=== PATIENT | male | born 1985 | race African-American/Black ===

== ENCOUNTER 2016-07-31 19:28 | Emergency (ER) | payer SELFPAY | END 2016-07-31 20:50 | disposition left against medical advice (07) | LOC: ER 19:28 | DX: Z53.21 Procedure and treatment not carried out due to patient leaving prior to being seen by health care provider (principal) ==

== ENCOUNTER 2017-06-07 08:37 | Emergency (ER) | payer SELFPAY ==
[2017-06-07 09:40] LABS: ABSOLUTE EOSINOPHILS # (AUTO) 0.3 10^3/uL (0.0-0.6); ABSOLUTE LYMPHOCYTES (AUTO) 1.3 10^3/uL (0.5-4.7); ABSOLUTE MONOCYTES (AUTO) 0.3 10^3/uL (0.1-1.4); ABSOLUTE NEUT (AUTO) 2.1 10^3/uL (1.7-8.2); BASOPHILS % (AUTO) 0.9 % (0-2); EOSINOPHILS % (AUTO) 6.8 % (0-6); HEMATOCRIT 40.3 % (37.9-51.0); HEMOGLOBIN 13.3 g/dL (13.5-17.0); LYMPHOCYTES % (AUTO) 31.7 % (13-45); MEAN CORPUSCULAR HGB CONC 33.1 g/dL (32.0-36.0); MEAN CORPUSCULAR VOLUME 91 fl (80-97); MONOCYTES % (AUTO) 8.7 % (3-13); PLATELET COUNT 214 10^3/uL (150-450); RED BLOOD COUNT 4.44 10^6/uL (4.35-5.55); RED CELL DISTRIBUTION WIDTH 14.8 % (11.5-14.0); SEGMENTED NEUTROPHILS % (AUTO) 51.9 % (42-78); TOTAL CELLS COUNTED % (AUTO) 100 %
[2017-06-07 09:58] LABS: ALANINE AMINOTRANSFERASE 47 U/L (21-72); ALBUMIN 4.5 g/dL (3.5-5.0); ALKALINE PHOSPHATASE 41 U/L (38-126); ANION GAP 7 (5-19); ASPARTATE AMINO TRANSFERASE 23 U/L (17-59); BILIRUBIN,DIRECT 0.1 mg/dL (0.0-0.4); BILIRUBIN,TOTAL 1.2 mg/dL (0.2-1.3); BLOOD UREA NITROGEN 13 mg/dL (7-20); CARBON DIOXIDE 32 mmol/L (22-30); CHLORIDE 104 mmol/L (98-107); GLUCOSE 88 mg/dL (75-110); POTASSIUM 4.1 mmol/L (3.6-5.0); SODIUM 143.4 mmol/L (137-145)
[2017-06-07 10:01] LABS: ACETAMINOPHEN < 10 ug/mL (10-30); ALCOHOL < 10 mg/dL (NONE DETECTED); SALICYLATE < 1.0 mg/dL (2.0-20.0)
[2017-06-07 10:18] LABS: APPEARANCE,URINE SLIGHTLY-CLOUDY; BILIRUBIN,URINE NEGATIVE (NEGATIVE); COLOR,URINE YELLOW; GLUCOSE, URINE NEGATIVE (NEGATIVE); KETONES,URINE NEGATIVE (NEGATIVE); LEUKOCYTE ESTERASE,URINE SMALL (NEGATIVE); NITRITE,URINE NEGATIVE (NEGATIVE); PROTEIN,URINE 30 mg/dL (NEGATIVE); URINE SPECIFIC GRAVITY 1.033
[2017-06-07] MEDS ORDERED: BENZTROPINE MESYLATE INJ 2 MG/2 ML AMPULE IM ONE (10:27)
[2017-06-07] MEDS ORDERED: OLANZAPINE INJ/PF 10 MG SDV IM ONE (10:27)
[2017-06-07] MEDS ORDERED: HYDROXYZINE PAMOATE 50 MG CAPSULE PO PRN (10:31)
[2017-06-07 10:34] LABS: URINE AMPHETAMINES SCREEN NEGATIVE; URINE BARBITURATES SCREEN NEGATIVE; URINE BENZODIAZEPINES SCREEN NEGATIVE; URINE COCAINE SCREEN NEGATIVE; URINE MARIJUANA (THC) SCREEN UNCONFIRMED POSITIVE; URINE METHADONE SCREEN NEGATIVE; URINE PHENCYCLIDINE SCREEN NEGATIVE
--- NOTE | 2017-06-07 10:36 | ER Document Report ---
Addendum entered and electronically signed by NICO SANCHEZ LCSWA 06/08/17 10:48 : Discharge - Discharge Clinical Impression: Problems related to other legal circumstances Condition: Stable Disposition: HOME, SELF-CARE Additional Instructions: Counseling Services It has been recommended that you seek professional counseling to assist you with the stresses that you are experiencing. Most people at some time in their lives experience personal problems with which they need help. Pride and feeling that one can't be helped keep a lot of people from the benefits of counseling. Follow up care: Recommendation for patient to follow-up with medication provider and outpatient therapist at [facility]. Resources provided to patient and patient's family. Patient's fianc is present and has agreed to discharge plan to include assisting patient in obtaining an appointment with provider. Clinician contacted [facility] mobile crisis to arrange a time for an assessment at patient's home today 2017. Referrals: [facility] [Outside] - 06/08/17 Original Note: ED General - General TRAVEL OUTSIDE OF THE [place] IN LAST 30 DAYS: No - HPI Patient complains to provider of: Psychiatric evaluation <WILLIAN ORY - Last Filed: 06/07/17 10:36> <NICO SANCHEZ - Last Filed: 06/08/17 10:48> <IFEANYI SMART - Last Filed: 06/08/17 11:57> - General Chief Complaint: Depression Stated Complaint: PSYCH EVAL Time Seen by Provider: 06/07/17 08:51 - HPI Notes: Patient coming in for a psychiatric evaluation. Patient states depressed. Upon my evaluation patient is on his cell phone with any signs of any distress. When asked why the patient came here today patient states he cannot see his kids states that he has a do not see order from the mother's of his children and cannot see his kids therefore it is not a good place. Patient states he does not eat or drink anything the last 3 days. Patient denies homicidal suicidal ideation at this time. Patient states is not a good place I do not know what I will do. Patient does seem to be very hyperverbal at the time. Patient states he does have a history of PTSD. Patient states that he was on medication before however they were helping. Patient states he does not want take any medications for his issues at this time. Patient states he would just like to seek help. (WILLIAN ROY) - Related Data Allergies/Adverse Reactions: No Known Allergies Allergy (Unverified 10/09/11 00:17) Past Medical History - Social History Smoking Status: Current Every Day Smoker Chew tobacco use (# tins/day): No Frequency of alcohol use: Rare Drug Abuse: None Family History: Reviewed & Not Pertinent Patient has suicidal ideation: No Patient has homicidal ideation: No - Past Medical History Cardiac Medical History: Denies: Hx Coronary Artery Disease, Hx Heart Attack, Hx Hypertension Pulmonary Medical History: Denies: Hx Asthma, Hx Bronchitis, Hx COPD, Hx Pneumonia Neurological Medical History: Denies: Hx Cerebrovascular Accident, Hx Seizures Renal/ Medical History: Denies: Hx Peritoneal Dialysis Musculoskeltal Medical History: Denies Hx Arthritis Psychiatric Medical History: Reports: Hx Depression - Immunizations Hx Diphtheria, Pertussis, Tetanus Vaccination: Yes <WILLIAN ROY - Last Filed: 06/07/17 10:36> Review of Systems - Review of Systems Constitutional: No symptoms reported EENT: No symptoms reported Cardiovascular: No symptoms reported Respiratory: No symptoms reported Gastrointestinal: No symptoms reported Genitourinary: No symptoms reported Male Genitourinary: No symptoms reported Musculoskeletal: No symptoms reported Skin: No symptoms reported Hematologic/Lymphatic: No symptoms reported Neurological/Psychological: Depression -: Yes All other systems reviewed and negative <WILLIAN ROY - Last Filed: 06/07/17 10:36> Physical Exam - Vital signs Interpretation: Normal - General General appearance: Appears well, Alert - HEENT Head: Normocephalic, Atraumatic Eyes: Normal Pupils: PERRL - Respiratory Respiratory status: No respiratory distress Chest status: Nontender Breath sounds: Normal Chest palpation: Normal - Cardiovascular Rhythm: Regular Heart sounds: Normal auscultation Murmur: No - Abdominal Inspection: Normal Distension: No distension Bowel sounds: Normal Tenderness: Nontender Organomegaly: No organomegaly - Back Back: Normal, Nontender - Extremities General upper extremity: Normal inspection, Nontender, Normal color, Normal ROM , Normal temperature General lower extremity: Normal inspection, Nontender, Normal color, Normal ROM , Normal temperature, Normal weight bearing. No: Simone's sign - Neurological Neuro grossly intact: Yes Cognition: Normal Orientation: AAOx4 Renner Coma Scale Eye Opening: Spontaneous Renner Coma Scale Verbal: Oriented Renner Coma Scale Motor: Obeys Commands Otoniel Coma Scale Total: 15 Speech: Normal Motor strength normal: LUE, RUE, LLE, RLE Sensory: Normal - Psychological Associated symptoms: Depressed, Tearful - Skin Skin Temperature: Warm Skin Moisture: Dry Skin Color: Normal <WILLIAN ROY - Last Filed: 06/07/17 10:36> - Vital signs Vitals: Temp Pulse Resp BP Pulse Ox 97.8 F 78 14 92/51 L 97 06/07/17 21:18 06/07/17 21:18 06/07/17 21:18 06/07/17 21:18 06/07/17 21:18 Course - Laboratory Result Diagrams: 06/07/17 09:15 06/07/17 09:15 <WILLIAN ROY - Last Filed: 06/07/17 10:36> - Laboratory Result Diagrams: 06/07/17 09:15 06/07/17 09:15 <NICO SANCHEZ - Last Filed: 06/08/17 10:48> - Laboratory Result Diagrams: 06/07/17 09:15 06/07/17 09:15 <IFEANYI SMART - Last Filed: 06/08/17 11:57> - Re-evaluation Re-evalutation: 06/07/17 10:35 Laboratory studies not show any critical etiology at this time. Just been notified by the psychiatric team that they would like to IVC the patient and they have placed in medications for the patient. Upon finding out that the patient would stay for further evaluation patient became upset and aggressive requiring medication to help out his situation. (WILLIAN ROY) - Vital Signs Vital signs: Temp Pulse Resp BP Pulse Ox 98.9 F 60 14 106/48 L 98 06/08/17 09:43 06/08/17 09:43 06/08/17 09:43 06/08/17 09:43 06/08/17 09:43 - Laboratory Laboratory results interpreted by me: 06/07/17 06/07/17 06/07/17 09:15 09:15 09:15 Hgb 13.3 L RDW 14.8 H Eosinophils % 6.8 H Carbon Dioxide 32 H Urine Protein 30 H Urine Blood SMALL H Urine Urobilinogen 2.0 H Ur Leukocyte Esterase SMALL H Salicylates < 1.0 L Acetaminophen < 10 L Discharge <WILLIAN ROY - Last Filed: 06/07/17 10:36> <NICO SANCHEZ - Last Filed: 06/08/17 10:48> <IFEANYI SMART - Last Filed: 06/08/17 11:57> - Discharge Clinical Impression: Problems related to other legal circumstances Condition: Stable Disposition: HOME, SELF-CARE Additional Instructions: Counseling Services It has been recommended that you seek professional counseling to assist you with the stresses that you are experiencing. Most people at some time in their lives experience personal problems with which they need help. Pride and feeling that one can't be helped keep a lot of people from the benefits of counseling. Follow up care: Recommendation for patient to follow-up with medication provider and outpatient therapist at [facility]. Resources provided to patient and patient's family. Patient's fianc is present and has agreed to discharge plan to include assisting patient in obtaining an appointment with provider. Clinician contacted [facility] mobile crisis to arrange a time for an assessment at patient's home today 2017. Referrals: [facility] [Outside] - 06/08/17
--- NOTE | 2017-06-07 12:44 | PSYCHOLOGICAL NOTE ---
Psych Note - Psych Note Psych Note: Reason for Consult: depression pt to room 47 in ED for increase in depression. pt is not suicidal, pt states he just feels like he cant function and is scared of what he might do. pt took antidepressants in the past but is currently not on anything. Patient disclosed that he came to [facility] ED voluntarily because he did not want to "do something." Patient continues state "I am crazy about my kids... I already lost my mother... Now I'm losing my kids." Clinician was able to have the patient slow down to fully explain. He disclosed that he was in a previous relationship and has 2 boys ages 4 and 2 with her. He continued to state that while they are no longer together they still see each other frequently to raise the boys together. He reports a month ago when he told his ex-that he was engaged she confessed to him that she had cheated on him and the boys might not be his. He states that he has been trying to get a DNA test but she keeps coming up with excuses. He stopped communicating with her and started communicating with her father and attempt to get the DNA test; "I bought the kit... do you know how embarrassing that is standing in line buying a DNA kit? ... All she has to do is bring the boys over so I can swab their mouth ... It would take seconds." He disclosed that when he heard the doorbell he thought that his boys were there finally for the test however when he open the door it was a crime prevention police officer serving him with a no contact order. He continued disclosed that his ex-girlfriend knew boyfriend also put out a restraining order against him; "I do not even know what the shelly looks like... how can I stay away from him if I don't even know what he looks like?" He reports that his ex-" must have falsified" information to get the orders. Patient stated "they are not safe in my presence.. I cannot guarantee they are safe from me...this morning it turned to hate...I truly hate her" when speaking about his ex-girl friend and her boy friend. He continued to state "my mother 2 years ago... The only reason I did not kill myself was because of those boys... And now going to lose them... I have no one..." Patient is alert and orientated to person, place, time and circumstance. Mood is highly agitated and irritable with labile affect moving from angry to tearful. Patient makes passive homicidal and suicidal comments. Delusions are absent and behaviors congruent with intact reality based presentation i.e. organized and linear thought processes. Conversational speech is slightly pressured and loud. Eye contact was poor. Attention and concentration was poor. Insight, judgment, impulse control is good as evidenced by patient coming into [facility] for assistance. Medication recommendations per [facility]'s contracted psychiatrist, Dr. Cash MD are as follows: 1. Zyprexa 10mg Now 2. Cogentin 1mg Now 3. Effexor 37.5mg Twice Daily 4. Buspar 10mg Twice Daily Diagnosis 309.81 (F43.1) post traumatic stress disorder per history provided by patient Impression\\plan: Patient is recommended for IVC. Patient is currently in crisis with highly agitated and irritable mood with affect moving back and forth from angry to tearful quickly. Patient demonstrated good insight, judgment and impulse control coming into [facility] ED for assistance in stopping himself and acting out; however, patient attempted to elope moments after clinician spoke with patient demonstrating his deterioration in those areas of control. Patient made passive suicidal and homicidal comments. Medication recommendations have been provided. Patient will be reevaluated. Dr. Wayne was consulted and the care and management this patient; attending physician is in agreement with recommendations and disposition.
[2017-06-07] MEDS ORDERED: DIPHENHYDRAMINE HCL 50 MG/ML VIAL IM ONE (13:35)
[2017-06-07] MEDS ORDERED: LORAZEPAM INJ 2 MG/1 ML VIAL IM ONE (13:35)
--- NOTE | 2017-06-07 15:19 | EKG REPORT ---
SEVERITY:- NORMAL ECG - SINUS RHYTHM ST ELEV, PROBABLE NORMAL EARLY REPOL PATTERN : Confirmed by: Fatimah Davis 07-Jun-2017 15:19:18
[2017-06-07] MEDS ORDERED: VENLAFAXINE HCL 37.5 MG CAP.SR.24H PO ONE (19:54)
[2017-06-07] MEDS: BUSPIRONE HCL 10 MG TABLET PO SCH (21:19)
[2017-06-07] MEDS: OLANZAPINE 5 MG TABLET PO SCH (21:20)
[2017-06-07] MEDS: VENLAFAXINE HCL 37.5 MG CAP.SR.24H PO SCH (21:20)
--- NOTE | 2017-06-08 09:25 | ER Document Report ---
Doctor's Note Notes: Patient is alert and oriented 3 today without complaints. He has been seen by the psychology team. Vital signs have been stable. Labs have been stable. Awaiting disposition as per psychology. 06/08/17 09:23
[2017-06-08] MEDS: OLANZAPINE 5 MG TABLET PO SCH (09:37)
--- NOTE | 2017-06-08 09:37 | PSYCHOLOGICAL NOTE ---
Psych Note - Psych Note Psych Note: Reason for consult: Alleged passive suicidal ideation Eval: 0734 Final Disposition 0909 Contact Permissions: Bethany Stark [phone] Patient is a 31-year-old male. Patient reports that he had a good night of sleep and feels better. Patient reports that he has been thinking about what he is going to do next, and intends on hiring an compliance attorney to meet with this week. Patient reports that he wants 50/50 custody of his 2 children ages 4 and 2. Patient reports that he still intends on getting a DNA test but has mentally prepared himself for what he will do. Patient reports that he has a cousin who recently found out that his daughter (21 years old) was not biologically his, and has not been dealing well with it. Patient reports that he is afraid he will end up that way. Patient reports worst case scenario he would distance himself from the 2 children if they are not biologically his to cope with the news. Patient reports that he hopes the children are biologically his because he wants 50/50 custody and has been involved in their life since they were born. Patient reports that his fiance has been supportive throughout the discord between him and his children's mother. Patient reports that he is not suicidal/homicidal, And has a lot to live for including looking forward to marrying his fianc. Patient reports that he has been with her since 2014 and knows that he can continue to work towards getting his children back. Patient reports that he has had his children every other weekend since 2014. Patient reports that he has a court date on June 16 to discuss the protection order (restraining order). Patient reports that last night he was told his baby's mother tried to contact him through a third-democrat to state that their 2 children were happy and safe. Patient reports that he does not want to violate that order and will not be contacting her back. Patient reports that there is also a protective order against patient's boyfriend whom he has never met and does not intend to contact either. Patient reports that he hopes things work out for him in court, as he has experience with being involved in the "system". Patient reports that he lives in a good neighborhood and has always treated his children well so he feels that his home is a safe place for his kids to return to, and is frustrated that his baby's mother has acted out of jealousy toward his fianc as well as fear of him getting a DNA test. Patient reports he was in the [employer]. 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 Patient reports the boyfriend who took a restraining order on him is active duty in the [employer]. and states he has never made any threats towards him nor has any intention on doing so. Patient reports it has been a month since he has seen his children and he hopes that he will see them soon. Patient reports that the medication helped him to sleep and he feels it has also helped his mood because he does not feel "out of control". Patient reports that he "just needed to think", and would like to continue the medications he received in the hospital (if possible). Collateral information: Bethany Stark (fianc) Present is patient's fimyriam Sims, patient and clinician. Patient's fianc reports that she noticed patient's mood had improved. Patient's fianc reports that she has had issues with his children's mother over the last few years to include her stating she did not want the fianc to be involved in the children' s lives. Patient's fianc reports that she has helped take care of the children when her fianc had them in their home. Patient's fianc reports she has a good relationship with the children. Patient's fianc reports that she would like to be involved in the discharge care plan to include monitoring patient at home for any changes in behavior. Patient's fianc reports that she will assist patient and coordinating follow-up care with a medication provider and outpatient therapist. Medication recommendation made by [facility] psychiatric provider Dr. Cash MD. Includes: 1. Effexor 37.5 mg twice daily by mouth 2. Zyprexa 5 mg twice daily by mouth 3. Cogentin 1 mg once daily by mouth 4. BuSpar 10 mg twice daily by mouth ( 7 to 10 day prescription; patient will follow up with medication provider) Diagnosis: Per Hx posttraumatic stress disorder V 62.5 (Z 65.3) problems related to other legal circumstances Impression/Plan: Patient is psychiatrically cleared for discharge. Recommendation to rescind involuntary commitment due to patient not meeting criteria [place] GS 122C. Recommendation for patient to follow-up with medication provider and outpatient therapist. Resources provided to patient and patient's family. Patient's fianc is present and has agreed to discharge plan to include assisting patient in obtaining an appointment with [facility] today. Clinician contacted mobile crisis to arrange a time for an assessment at patient's home today 2017. Clinician observed patient affect and mood has improved. Clinician observed patient has natural support system to assist him. Clinician observed patient displays future oriented-thinking ( planning to address legal circumstances- custody and protective order) and mood regulation ( through recognizing emotions, and utilizing coping).Clinician observed patient's initial reaction to upcoming court date was a core influence in patient's mental health symptoms/crisis; patient is now coping with social circumstances, and is no longer in crisis per patient reports and through direct face to face observation. Consulted with Dr. Wayne regarding the management and care of patient.
[2017-06-08] MEDS: BUSPIRONE HCL 10 MG TABLET PO SCH (09:38)
[2017-06-08] MEDS: VENLAFAXINE HCL 37.5 MG CAP.SR.24H PO SCH (09:38)
[2017-06-08 09:44] VITALS: BP 106/48
[2017-06-08] MEDS ORDERED: BENZTROPINE MESYLATE 1 MG TABLET PO SCH (10:00)
[2017-06-08 11:33] LABS: CHLAM PCR NOT DETECTED (NOT DETECT); GON PCR NOT DETECTED (NOT DETECT)
== END 2017-06-08 12:15 | disposition home or self-care (01) ==
LOC: ER 08:37
DX: F32.9 Major depressive disorder, single episode, unspecified (principal); Z65.3 Problems related to other legal circumstances; F17.200 Nicotine dependence, unspecified, uncomplicated
CPT/HCPCS: 93005; 99285; 96372; 36415; 80307 ×4; 85025; 80053; 81001; 87491; 87591; 93010; J0515; J1200; J3490 ×2; J2060

== ENCOUNTER 2019-01-14 10:53 | Emergency (ER) | payer OTHER ==
--- NOTE | 2019-01-14 11:12 | ER Document Report ---
ED Medical Screen (RME) - General Chief Complaint: Psych Problem Stated Complaint: IVC Time Seen by Provider: 01/14/19 11:07 Mode of Arrival: Ambulatory Information source: Patient Notes: 33-year-old presented to ED for complaint of suicidal ideation just today. He states he did attempt suicide but taken off every medicine he did fine but then he got sick and threw it all up and did not commit suicide. He states he spoke with Dr. Wayne and she told him that he needed to come in and committed himself with suicidal thoughts. He states he is not thinking of suicide today but she wants him to commit himself and get some help. He states he does have a history of PTSD anxiety and depression. Patient is alert oriented respirations regular nonlabored speaking in full sentences. TRAVEL OUTSIDE OF THE [place] IN LAST 30 DAYS: No - Related Data Allergies/Adverse Reactions: No Known Allergies Allergy (Unverified 10/09/11 00:17) Past Medical History - Past Medical History Cardiac Medical History: Denies: Hx Coronary Artery Disease, Hx Heart Attack, Hx Hypertension Pulmonary Medical History: Denies: Hx Asthma, Hx Bronchitis, Hx COPD, Hx Pneumonia Neurological Medical History: Denies: Hx Cerebrovascular Accident, Hx Seizures Renal/ Medical History: Denies: Hx Peritoneal Dialysis Musculoskeltal Medical History: Denies Hx Arthritis Psychiatric Medical History: Reports: Hx Depression - Immunizations Hx Diphtheria, Pertussis, Tetanus Vaccination: Yes Physical Exam - Vital signs Vitals: Temp Pulse Resp BP Pulse Ox 98.2 F 60 18 139/66 H 100 01/14/19 10:59 01/14/19 10:59 01/14/19 10:59 01/14/19 10:59 01/14/19 10:59 Course - Vital Signs Vital signs: Temp Pulse Resp BP Pulse Ox 98.2 F 60 18 139/66 H 100 01/14/19 10:59 01/14/19 10:59 01/14/19 10:59 01/14/19 10:59 01/14/19 10:59
--- NOTE | 2019-01-14 11:30 | ER Document Report ---
ED General - General Chief Complaint: Psych Problem Stated Complaint: IVC Time Seen by Provider: 01/14/19 11:07 Mode of Arrival: Ambulatory TRAVEL OUTSIDE OF THE [place] IN LAST 30 DAYS: No - HPI Notes: 33-year-old male presents to the emergency room for evaluation after he overdose d on medication yesterday which caused him to vomit. Patient states that he did take the medication because he did feel helpless and hopeless however he realized after taking the medication that he did not want to . Yesterday was the anniversary of his mother's , patient states he is under an extreme amount of stress. Denies any homicidal ideation, currently states he does not have any suicidal ideation. Patient did contact Dr. Maxwell Wayne, psychologist, yesterday regarding events, she advised him to check her himself into the emergency room for mental health evaluation. Denies fevers, chills, chest pain,palpitations, shortness of breath, dyspnea, nausea, vomiting, diarrhea, abdominal pain, hematuria,blurred vision, double vision, loss of vision, speech changes, LH, dizziness, syncope, headaches, wheezing, ST, URI, neck pain, weakness, bowel or bladder dysfunction, saddle anesthesia, numbness or tingling in bilateral upper or lower extremities equally, muscle paralysis, weakness in bilateral upper or lower extremities equally or rash. - Related Data Allergies/Adverse Reactions: No Known Allergies Allergy (Unverified 10/09/11 00:17) Past Medical History - General Information source: Patient - Social History Smoking Status: Current Some Day Smoker Frequency of alcohol use: Occasional Drug Abuse: Methamphetamine Family History: Reviewed & Not Pertinent Patient has suicidal ideation: Yes Patient has homicidal ideation: No - Past Medical History Cardiac Medical History: Denies: Hx Coronary Artery Disease, Hx Heart Attack, Hx Hypertension Pulmonary Medical History: Denies: Hx Asthma, Hx Bronchitis, Hx COPD, Hx Pneumonia Neurological Medical History: Denies: Hx Cerebrovascular Accident, Hx Seizures Renal/ Medical History: Denies: Hx Peritoneal Dialysis Musculoskeletal Medical History: Denies Hx Arthritis Psychiatric Medical History: Reports: Hx Depression - Immunizations Hx Diphtheria, Pertussis, Tetanus Vaccination: Yes Review of Systems - Review of Systems Constitutional: No symptoms reported EENT: No symptoms reported Cardiovascular: No symptoms reported Respiratory: No symptoms reported Gastrointestinal: No symptoms reported Genitourinary: No symptoms reported Male Genitourinary: No symptoms reported Musculoskeletal: No symptoms reported Skin: No symptoms reported Hematologic/Lymphatic: No symptoms reported Neurological/Psychological: Suicidal ideation Physical Exam - Vital signs Vitals: Temp Pulse Resp BP Pulse Ox 98.2 F 60 18 139/66 H 100 01/14/19 10:59 01/14/19 10:59 01/14/19 10:59 01/14/19 10:59 01/14/19 10:59 - Notes Notes: PHYSICAL EXAMINATION:reviewed vital signs by RN GENERAL: Well-appearing, well-nourished and in no acute distress. HEAD: Atraumatic, normocephalic. EYES: Pupils equal round and reactive to light, extraocular movements intact, sclera anicteric, conjunctiva are normal. ENT: Nares patent, oropharynx clear without exudates. Moist mucous membranes. NECK: Normal range of motion, supple without lymphadenopathy LUNGS: Breath sounds clear to auscultation bilaterally and equal. No wheezes rales or rhonchi. HEART: Regular rate and rhythm without murmurs ABDOMEN: Soft, nontender, nondistended abdomen. No guarding, no rebound. No masses appreciated. Musculoskeletal: Normal range of motion, no pitting or edema. No cyanosis. NEUROLOGICAL: Cranial nerves grossly intact. Normal speech, normal gait. Normal sensory, motor exams PSYCH: Normal mood, normal affect. SKIN: Warm, Dry, normal turgor, no rashes or lesions noted. Course - Re-evaluation Re-evalutation: 01/14/19 15:15 Afebrile vital stable no distress. CBC unremarkable, CMP is slightly dehydrated. Patient denies any suicidal ideation or homicidal ideation. Urine drug screen positive for marijuana only. Patient is calm and pleasant. Mental health at bedside to evaluate patient, will likely discharge tomorrow morning start patient on oral medications. - Vital Signs Vital signs: Temp Pulse Resp BP Pulse Ox 98.2 F 60 18 139/66 H 100 01/14/19 10:59 01/14/19 10:59 01/14/19 10:59 01/14/19 10:59 01/14/19 10:59 - Laboratory Result Diagrams: 01/14/19 12:19 01/14/19 12:37 Laboratory results interpreted by me: 01/14/19 01/14/19 01/14/19 12:19 12:37 13:30 RDW 14.9 H Sodium 145.9 H Chloride 108 H AST 16 L Urine Urobilinogen 2.0 H Ur Leukocyte Esterase TRACE H Acetaminophen < 10 L Discharge - Discharge Clinical Impression: Suicidal ideation Condition: Stable Disposition: PSYCH HOSP/UNIT
[2019-01-14 12:38] LABS: ABSOLUTE EOSINOPHILS # (AUTO) 0.2 10^3/uL (0.0-0.6); ABSOLUTE LYMPHOCYTES (AUTO) 1.2 10^3/uL (0.5-4.7); ABSOLUTE MONOCYTES (AUTO) 0.8 10^3/uL (0.1-1.4); ABSOLUTE NEUT (AUTO) 4.7 10^3/uL (1.7-8.2); BASOPHILS % (AUTO) 0.5 % (0-2); EOSINOPHILS % (AUTO) 2.2 % (0-6); HEMATOCRIT 41.7 % (37.9-51.0); LYMPHOCYTES % (AUTO) 17.9 % (13-45); MEAN CORPUSCULAR HEMOGLOBIN 30.7 pg (27.0-33.4); MEAN CORPUSCULAR HGB CONC 33.6 g/dL (32.0-36.0); MEAN CORPUSCULAR VOLUME 91 fl (80-97); MONOCYTES % (AUTO) 12.1 % (3-13); PLATELET COUNT 202 10^3/uL (150-450); RED BLOOD COUNT 4.56 10^6/uL (4.35-5.55); RED CELL DISTRIBUTION WIDTH 14.9 % (11.5-14.0); SEGMENTED NEUTROPHILS % (AUTO) 67.3 % (42-78); TOTAL CELLS COUNTED % (AUTO) 100 %
--- NOTE | 2019-01-14 13:08 | EKG REPORT ---
SEVERITY:- NORMAL ECG - SINUS RHYTHM : Confirmed by: Azar Lorenz MD 14-Jan-2019 13:07:16
[2019-01-14 13:17] LABS: ALBUMIN 4.1 g/dL (3.5-5.0); ALKALINE PHOSPHATASE 54 U/L (38-126); ANION GAP 9 (5-19); ASPARTATE AMINO TRANSFERASE 16 U/L (17-59); BILIRUBIN,DIRECT 0.2 mg/dL (0.0-0.4); BILIRUBIN,TOTAL 0.4 mg/dL (0.2-1.3); BLOOD UREA NITROGEN 14 mg/dL (7-20); CALCIUM 9.2 mg/dL (8.4-10.2); CARBON DIOXIDE 29 mmol/L (22-30); CHLORIDE 108 mmol/L (98-107); GLUCOSE 101 mg/dL (75-110); POTASSIUM 3.9 mmol/L (3.6-5.0); SALICYLATE 3.5 mg/dL (2.0-20.0)
[2019-01-14 13:19] LABS: ACETAMINOPHEN < 10 ug/mL (10-30); ALCOHOL < 10 mg/dL (NONE DETECTED)
[2019-01-14 13:53] LABS: APPEARANCE,URINE CLEAR; BILIRUBIN,URINE NEGATIVE (NEGATIVE); COLOR,URINE YELLOW; GLUCOSE, URINE NEGATIVE (NEGATIVE); KETONES,URINE NEGATIVE (NEGATIVE); LEUKOCYTE ESTERASE,URINE TRACE (NEGATIVE); NITRITE,URINE NEGATIVE (NEGATIVE); PROTEIN,URINE NEGATIVE (NEGATIVE); URINE SPECIFIC GRAVITY 1.029
[2019-01-14 14:10] LABS: URINE AMPHETAMINES SCREEN NEGATIVE; URINE BARBITURATES SCREEN NEGATIVE; URINE BENZODIAZEPINES SCREEN NEGATIVE; URINE COCAINE SCREEN NEGATIVE; URINE MARIJUANA (THC) SCREEN UNCONFIRMED POSITIVE; URINE METHADONE SCREEN NEGATIVE; URINE PHENCYCLIDINE SCREEN NEGATIVE
[2019-01-14] MEDS: BUSPIRONE HCL 10 MG TABLET PO SCH (17:12)
[2019-01-14] MEDS: OLANZAPINE 2.5 MG TABLET PO SCH (17:12)
[2019-01-15] MEDS ORDERED: ACETAMINOPHEN 325 MG TABLET PO ONE (01:21)
[2019-01-15] MEDS: OLANZAPINE 2.5 MG TABLET PO SCH (09:57)
[2019-01-15] MEDS: BUSPIRONE HCL 10 MG TABLET PO SCH (09:57)
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
[2019-01-15 12:01] VITALS: BP 117/65
== END 2019-01-15 12:01 | disposition home or self-care (01) ==
LOC: ER 10:53
DX: R45.851 Suicidal ideations (principal); F17.200 Nicotine dependence, unspecified, uncomplicated
CPT/HCPCS: 93005; 99285; 36415; 80307 ×4; 85025; 80053; 81001; 93010; J3490 ×2